=== PATIENT | male | born 1975 | race Caucasian/White ===

== ENCOUNTER 2024-10-12 00:39 | Emergency (ER) | payer BC, OTHER ==
[2024-10-12 00:54] VITALS: BP 110/71; PULSE 84
[2024-10-12] MEDS: Cyclobenzaprine 10 MG Tab PO ONE (01:15)
[2024-10-12] MEDS: Ketorolac 15 MG/ML SDV IVPUSH ONE (01:18)
[2024-10-12] MEDS: LORazepam 2 MG/ML SDV IM ONE (03:21)
[2024-10-12] MEDS: HYDROmorphone 2 MG/ML SDV IVPUSH ONE (05:47)
== END 2024-10-12 06:15 | disposition home or self-care (01) ==
LOC: FB.ED 00:39
DX: M62.830 Muscle spasm of back (principal); F17.210 Nicotine dependence, cigarettes, uncomplicated; Z91.018 Allergy to other foods; Z88.1 Allergy status to other antibiotic agents
CPT/HCPCS: 96372; 96374; 96375; 99283-25; A9270-GY; J1171; J1885; J2060